=== PATIENT | female | born 1970 | race Caucasian/White ===

== ENCOUNTER 2018-02-16 08:27 | Day surgery (SDC) | payer OTHER ==
--- NOTE | 2018-02-16 07:58 | HP ---
DATE OF SURGERY: 02/16/2018 HISTORY OF PRESENT ILLNESS: The patient is a 47 year-old with upper esophagus with solids and liquids getting stuck for two months, worse now. Occasional upper abdominal aches. No prior upper endoscopy. She did have family history mother with esophageal cancer. PAST MEDICAL HISTORY: Pancreatitis. Seizure disorder. Schizophrenia. Chronic obstructive pulmonary disease. PAST SURGICAL HISTORY: Cholecystectomy. Hysterectomy. Apparently she had all of her toenails removed according to the patient. MEDICATIONS: Topamax, Lasix, Klor-Con, Cogentin, Seroquel, Lipitor as well as a couple inhalers. ALLERGIES: TRAMADOL. FAMILY HISTORY: Esophageal cancer. SOCIAL HISTORY: Half pack per one pack per day smoker. Denies alcohol abuse. REVIEW OF SYSTEMS: Twelve systems reviewed. No chest pain or palpitations otherwise pertinent for as noted above and per preadmission questionnaire. PHYSICAL EXAMINATION: GENERAL: No acute distress. HEENT: Sclerae nonicteric. NECK: No JVD. CHEST: Equal excursion, nonlabored breathing. CVS: Regular rate and rhythm. ABDOMEN: Soft. No peritoneal signs. Minimal tenderness epigastrium. EXTREMITIES: No edema or cyanosis. NEURO: Alert, oriented, moving extremities symmetrically. No gross motor deficits noted. IMPRESSION: Dysphagia, family history of esophageal cancer. I feel the patient will benefit from upper endoscopy possible biopsy, possible dilatation pending operative findings. She has had some problems with upper esophagus solids and liquids. Pending operative findings possible dilatation. Risks and benefits explained in detail including but not limited to bleeding or infection, small risk of bowel injury or perforation possibly requiring open procedure, risk of ongoing morbidity, risk of missed or nondiagnosis, possibility of dilatation is performed and improves her situation she may need repeated again down the road, possibility dilatation may not improve her symptoms. She may have more of a functional than neurologic issue. General risk of anesthesia or sedation. She agrees to the planned procedure and will proceed with EGD possible biopsy possible dilatation as an outpatient.
[2018-02-16] MEDS ORDERED: DIPRIVAN 200 MG/20 ML IV ONE (08:28)
[2018-02-16] MEDS ORDERED: Ketamine HCl 50 MG/ML IV ONE (08:28)
[2018-02-16] MEDS ORDERED: Lactated Ringers 1,000 ML IV SCH ×2 (09:00→09:30)
[2018-02-16 11:45] VITALS: O2SAT 99
[2018-02-16 12:28] VITALS: BP 134/82; PULSE 73
--- NOTE | 2018-02-16 15:20 | OP ---
SURGERY DATE/TIME: 02/16/2018 1030 PREOPERATIVE DIAGNOSES: 1) Dysphagia. 2) History of some upper abdominal discomfort and pain. 3) Family history of esophageal cancer. POSTOPERATIVE DIAGNOSES: 1) Mild gastritis. 2) Fairly short segment distal gastroesophagitis versus normal variation of gastroesophageal junction. 3) Proximal esophageal narrowing and spasm. 4) No evidence of any obvious esophageal masses. PROCEDURES: 1) EGD with cold biopsy of small bowel to evaluate for celiac sprue. 2) Cold biopsy of the antrum to evaluate for Helicobacter pylori. 3) Cold biopsy distal esophagus to evaluate for eosinophilic esophagitis versus short segment distal gastroesophagitis versus normal variation of gastroesophageal junction, path pending. 4) Esophageal balloon dilatation symptomatic proximal esophageal narrowing (size 20 balloon dilator). SURGEON: Dr. Chris Reid. ANESTHESIA: MAC. ESTIMATED BLOOD LOSS: Minimal. INDICATIONS: As noted above. Risks and benefits explained in detail and not limited to and consent obtained. DESCRIPTION OF PROCEDURE AND FINDINGS: The patient is taken to the operating room. MAC anesthesia induced. After official time out and no disagreement with planned procedure, video gastroscope passed down in the oropharynx. The proximal esophageal area had some narrowing and spasm. There was no obvious mass to biopsy. Scope was able to be passed just passed through here but given her symptoms felt would benefit from dilatation at the end of the procedure. The scope passed back through the gastroesophageal junction to 40 cm. There was one small little streak question of some old reflux esophagitis changes. There is no abrasion of short segment versus normal variation of gastroesophageal junction, cold biopsy taken at the end of the procedure. Scope passed through the patent pylorus to the junction of the second and third portion of the duodenum. No signs of any ulcers. Given her symptom complaints, cold biopsy taken of the small bowel to evaluate for celiac sprue. The scope pulled back into the stomach. Cold biopsy taken. She had some mild gastritis. Cold biopsy taken to evaluate for Helicobacter pylori. Good hemostasis noted. On retroflex the gastroesophageal junction snug against the scope. There were no signs of any hiatal hernia. Scope is straightened and pulled back to gastroesophageal junction 40 cm. Again a cold biopsy taken distal esophagus of the gastroesophageal junction to evaluate for normal variation of gastroesophageal junction versus short segment distal gastroesophagitis and also to evaluate for any eosinophils as well. There were no signs of any obvious masses. Scope slowly and carefully withdrawn. Up to the narrowed area again there was no evidence of any other mucosal lesions but there was symptomatic narrowed area and spasm proximal esophagus. Given her symptom complaints it was felt she warranted dilatation there. Therefore scope passed back down in the stomach. A 20 balloon dilator catheter carefully inserted under direct vision of the stomach and pulled back up to the proximal esophagus. It was gradually inflated. At first stage 45 seconds and second stage 45 seconds and final stage for 2 minutes. The balloon was released and withdrawn. The scope much more easily passed through this area back down into the stomach, slowly and carefully withdrawn. Biopsy site in the stomach had good hemostasis. There had been brief ooze at the biopsy site in distal esophagus near the gastroesophageal junction this had good hemostasis at this point. Scope slowly and carefully withdrawn. The proximal esophagus again was more widely patent. There was no evidence of any obvious full thickness issues secondary to dilatation. The scope is withdrawn. The patient tolerated the procedure well. Findings discussed with the family out in the waiting area.
== END 2018-02-16 12:17 | disposition home or self-care (01) ==
LOC: SDC 08:27
PROVIDERS: ATTEND Surgery
DX: K29.70 Gastritis, unspecified, without bleeding (principal); K20.9 Esophagitis, unspecified; R13.10 Dysphagia, unspecified; K22.4 Dyskinesia of esophagus; Z80.0 Family history of malignant neoplasm of digestive organs; G40.909 Epilepsy, unspecified, not intractable, without status epilepticus; J44.9 Chronic obstructive pulmonary disease, unspecified; F20.9 Schizophrenia, unspecified; Z72.0 Tobacco use
CPT/HCPCS: 87081; 88305; C1726; J2704